=== PATIENT | male | born 1975 | race American Indian/Alaskan Native ===

== ENCOUNTER 2024-05-06 16:30 | Emergency (ER) | payer MEDICAID ==
[2024-05-06] MEDS ORDERED: Sodium Chloride 0.9% 10 ML Syringe FLUSH PRN (16:39)
[2024-05-06 17:08] LABS: BASOPHILS PERCENT AUTO 0.2 % (0.0-1.0); EOSINOPHILS PERCENT AUTO 0.6 % (1.0-3.0); HEMATOCRIT 46.3 % (40.0-54.0); HEMOGLOBIN 15.7 g/dL (14.0-18.0); LYMPHOCYTES PERCENT AUTO 15.2 % (20.5-50.1); MEAN CORPUSCULAR HEMOGLOBIN 29.1 pg (27.0-34.0); MEAN CORPUSCULAR HGB CONC 33.9 g/dL (33.0-35.0); MEAN CORPUSCULAR VOLUME 85.9 fL (80-100); MONOCYTES PERCENT AUTO 8.4 % (2-8); NEUTROPHILS PERCENT AUTO 75.6 % (42.2-75.2); PLATELET COUNT,PLT 157 10^3/uL (150-450); RED BLOOD CELL COUNT 5.39 10^6/uL (4.6-6.2); WHITE BLOOD CELL COUNT,WBC 12.6 10^3/uL (5.0-10.0)
[2024-05-06 17:28] LABS: A/G RATIO 0.8; ALBUMIN 3.7 g/dL (3.4-5.0); ANION GAP 15.9 mEq/L (7-13); BILIRUBIN TOTAL 0.6 mg/dL (0.2-1.0); BUN/CREATININE RATIO 10.9 (No establ ref range); C-REACTIVE PROTEIN 11.02 ng/dL (<=0.50); CREATININE 1.1 mg/dL (0.70-1.30); EST CRCL DRUG DOSING (CG) 90.14 mL/min; MAGNESIUM 1.9 mg/dL (1.8-2.4); POTASSIUM,K 3.9 mmol/L (3.5-5.1); PROTEIN TOTAL,TP 8.3 g/dL (6.4-8.2)
[2024-05-06 17:31] LABS: LACTIC ACID 1.4 mmol/L (0.4-2.0)
[2024-05-06] MEDS: Lactated Ringers 1,000 ML IV ONE (17:38)
[2024-05-06] MEDS: Ketorolac 30 MG/ML SDV IVPUSH ONE (17:40)
[2024-05-06] MEDS: Doxycycline 100 MG in Sodium Chloride 0.9% 100 ML IV ONE (17:46)
== END 2024-05-06 19:08 | disposition home or self-care (01) ==
LOC: DL.ED 16:30
DX: L03.115 Cellulitis of right lower limb (principal); I10 Essential (primary) hypertension
CPT/HCPCS: 36415; 80053; 83605; 83735; 84145; 85025; 86140; 87040; 93971; 96365; 96375; 99283; 99284; J1885; J3490; J7120